=== PATIENT | male | born 2000 | race Caucasian/White ===

== ENCOUNTER 2020-03-06 18:37 | Emergency (ER) | payer OTHER, SELFPAY ==
[2020-03-06 18:45] VITALS: BP 133/74; PULSE 82; RESP 15; TEMP 36.3; O2SAT 98; BMI 21.3
[2020-03-06 20:57] LABS: Urine N gonorrhoeae NOT DETECTED
[2020-03-06 20:58] LABS: Urine Chlamydia NOT DETECTED
[2020-03-06 21:01] VITALS: BP 146/74; PULSE 78; RESP 16; O2SAT 98
--- NOTE | 2020-03-06 22:48 | ED_ITS ---
HPI - Male Genitourinary General Chief complaint: Urogenital-Male Stated complaint: Possible UTI Time Seen by Provider: 03/06/20 22:36 Source: patient Mode of arrival: Ambulatory Limitations: no limitations History of Present Illness HPI Narrative: Patient here for complaints 1 week of dysuria with a white discharge. Treated January by the [employer] [employer] doctor for chlamydia. Given Rocephin and Levaquin. Not Zithromax or doxycycline. Symptoms have returned. Has not been sexually active since last January. Reviewed with patient and agrees with retreatment Rocephin and doxycycline this time, as well as treatment for possible Trichomonas. Will give Ramirez OLEARY Complaint: penile discharge and dysuria Related Data Previous Rx's Medication Instructions Recorded doxycycline monohydrate 100 mg PO BID #14 cap 03/06/20 metronidazole 500 mg PO BID #14 tab 03/06/20 Allergies Allergy/AdvReac Type Severity Reaction Status Date / Time No Known Drug Allergies Allergy Verified 03/06/20 18:48 Review of Systems Review of Systems Narrative: GENERAL: Denies chills, fatigue, malaise, fever, sweats. HEENT: Denies sinus pain, ear pain, sore throat, difficulty swallowing RESPIRATORY: Denies dyspnea, cough CARDIOVASCULAR: Denies chest pain, palpitations, edema, GASTROINTESTINAL: Denies nausea, vomiting, abdominal pain, diarrhea, constipation, melena. : Complains dysuria, denies frequency, hematuria, complaints of urethral discharge MUSCULOSKELETAL: denies muscle or bony pain SKIN: Denies rash, skin lesions NEUROLOGIC: Denies weakness, headache, numbness, change in speech, confusion PSYCHIATRIC: No SI or HI or hallucinations ROS Unobtainable: All systems reviewed & are unremarkable except as noted in HPI and below Patient History Social History Smoking Status: Current every day smoker Smoking Status: Current every day smoker tobacco type: vaping alcohol intake frequency: holidays/special occasions only Substance Use Type: does not use Exam Narrative Exam Narrative: GENERAL: patient appears stated age. Well-nourished, well- developed patient, in no distress, not toxic not dyspneic HEAD: Normocephalic. GASTROINTESTINAL: Abdomen soft, non-tender, nondistended. External genital exam normal. No urethral discharge. No lesions. No testicular tenderness. No scrotal erythema or tenderness or induration. EXTREMITIES: No gross deformities. BACK: Nontender without deformity or crepitance. No flank tenderness. NEURO: AOx4. SKIN: Warm and dry PSYCH: Not anxious, is cooperative Initial Vital Signs Initial Vital Signs: Vital Signs Temperature 97.4 F L 03/06/20 18:45 Pulse Rate 82 03/06/20 18:45 Respiratory Rate 15 03/06/20 18:45 Blood Pressure 133/74 03/06/20 18:45 Pulse Oximetry 98 03/06/20 18:45 Course Course Course Narrative: No new issues during course of stay Orders Ordered: Discontinued Medications Ceftriaxone Sodium (Ceftriaxone 1,000 Mg Vial) 500 mg IM NOW ONE Stop: 03/06/20 22:44 Last Admin: 03/06/20 23:04 Dose: 500 mg Documented by: VOLODYMYR Doxycycline Hyclate (Doxycycline Hyclate 100 Mg Tablet) 100 mg PO NOW ONE Stop: 03/06/20 22:44 Last Admin: 03/06/20 23:04 Dose: 100 mg Documented by: VOLODYMYR Lidocaine HCl (Lidocaine 1% 20 Ml) 2.1 ml INJ NOW ONE Stop: 03/06/20 22:44 Last Admin: 03/06/20 23:05 Dose: Not Given Documented by: VOLODYMYR Reevaluation(s) Reevaluation #1: Reviewed with patient results. Agrees with empiric treatment for symptoms. May be false negative. Time: 23:00 Vital Signs Vital signs: Vital Signs - 8 hr 03/06/20 21:01 03/06/20 23:01 Pulse Rate 78 68 Respiratory Rate 16 16 Blood Pressure 146/74 H 136/90 Pulse Oximetry 98 98 MDM - Male Genitourinary Differential Diagnosis Differential diagnosis: Likely urinary tract infection and urethritis Lab Data Attestation: I reviewed the patient's lab results. Labs: Lab Results 03/06/20 Range/Units 18:50 Ur Chlamydia DNA (PCR) Not detected N gonorrhoeae DNA (PCR) Not detected Urine Dip Bedside Urine Glucose Negative Bedside Urine Bilirubin - Negative Bedside Urine Ketone - Negative Urine Specific [place] 1.015 Bedside Urine Occult Blood - Negative Bedside Urine pH 7.5 Bedside Urine Protein - Negative Bedside Urine Urobilinogen - Negative Bedside Urine Nitrite - Negative Bedside Urine Leukocytes - Negative Esterase MDM Narrative Medical decision making narrative: Patient agrees with treatment for possible Trichomonas infection. Symptoms never fully rib resolved after treatment in January. This time will try doxycycline instead of Levaquin, these are new CDC guidelines Discharge Plan Departure Patient Disposition: Home Clinical Impression: Urethritis Instructions: DI for Urethritis Activity Restrictions/Additional Instructions: See family doctor or clinic [facility]. No sexual activity until seen by your provider. Do not drink alcohol while on these medications. Return if worse or if any questions or concerns Prescriptions: New doxycycline monohydrate 100 mg capsule 100 mg PO BID Qty: 14 RF: 0 metronidazole 500 mg tablet 500 mg PO BID Qty: 14 RF: 0
[2020-03-06 23:01] VITALS: BP 136/90; PULSE 68; RESP 16; O2SAT 98
[2020-03-06] MEDS: cefTRIAXone 1,000 MG VIAL 500 MG IM (23:04)
[2020-03-06] MEDS: DOXYCYCLINE HYCLATE 100 MG TABLET PO (23:04)
[2020-03-06] MEDS: LIDOCAINE 1% (PF) 2 ML (23:05)
--- NOTE | 2020-03-06 23:08 | PC.NURSE ---
recently treated in last month for STI, ongoing burning with urination and small amount of drainage yesterday.
== END 2020-03-06 23:24 | disposition home or self-care (01) ==
PROVIDERS: Emergency Provider Emergency Medicine
DX: N34.2 Other urethritis (principal); Z11.3 Encounter for screening for infections with a predominantly sexual mode of transmission
CPT/HCPCS: 81003; 87491; 87591; 96372; 99282; 99283; J0696

== ENCOUNTER 2022-05-10 21:05 | Emergency (ER) | payer OTHER, SELFPAY ==
[2022-05-10 21:19] VITALS: BP 134/74; PULSE 75; RESP 18; TEMP 37.1; O2SAT 98; BMI 21.3
--- NOTE | 2022-05-10 21:20 | DI.US.S_ITS ---
PROCEDURE: US SCROTUM INDICATIONS: RIGHT TESTICULAR PAIN TECHNIQUE: Real-time scanning was performed of the scrotum and testicles, with image documentation. Color and pulse Doppler interrogation was performed of both testicles. COMPARISON: None. FINDINGS: Right: Testicle measures 4.5 x 3.2 x 2.1 cm and appears homogenous in echotexture. Epididymis is normal in overall size and morphology. There are a few small epididymal head cysts or spermatoceles, with the largest measuring up to 0.3 cm. No hydrocele or varicoceles. Overlying scrotal skin is normal in thickness. Left: Testicle measures 4.8 x 2.8 x 2.0 cm and appears homogeneous in echotexture. Epididymis is normal in overall size and morphology. There are small clustered cysts within the epididymal head measuring up to 0.4 cm in aggregate dimension. No hydrocele or varicoceles. Overlying scrotal skin is normal in thickness. Doppler: Color and pulse Doppler demonstrate normal and symmetric arterial flow in both testicles. There is patent venous flow also demonstrated bilaterally. IMPRESSION: 1. No evidence of testicular torsion. 2. Small bilateral epididymal head cysts or spermatoceles. Dictated by: Dakota Bansal M.D. on 05/10/2022 at 22:19 Approved by: Dakota Bansal M.D. on 05/10/2022 at 22:21
--- NOTE | 2022-05-10 23:08 | DI.CT.S_ITS ---
PROCEDURE: CT KIDNEY URETER BLADDER (KUB) INDICATIONS: R side flank pain eval for stone TECHNIQUE: Axial sections were acquired from the lung bases to the pubic symphysis. Coronal and sagittal reformats were performed. For radiation dose reduction, the following was used: automated exposure control, adjustment of mA and/or kV according to patient size. COMPARISON: [facility], , US SCROTUM, 05/10/2022, 21:38. FINDINGS: Image quality: Excellent. Lung bases: There is minimal atelectasis. Heart: Heart is normal in size. URINARY: Right Kidney and Ureter: No stones or hydronephrosis. No hydroureter. Left Kidney and Ureter: No stones or hydronephrosis. No hydroureter. Bladder: Normal wall thickness. No stones. ABDOMEN: Liver: Noncontrast evaluation of the liver demonstrates no discrete mass. Gallbladder: Within normal limits without calcified gallstones. Biliary ducts: No biliary ductal dilatation. Pancreas: Unremarkable. Spleen: Normal in size. Adrenal Glands: No adrenal nodules. Stomach and Bowel: Stomach, small bowel loops, and colon are normal in caliber and wall thickness. No pericecal inflammatory changes to suggest appendicitis. There is colonic diverticulosis without acute diverticulitis. Peritoneum: No abnormal intraperitoneal fluid. No free air. Ventral Wall: No hernia. Abdominal Nodes: No retroperitoneal or mesenteric adenopathy by size criteria. Vessels: Aorta and inferior vena cava are normal in size. PELVIS: Pelvic Organs: Unremarkable. Pelvic Nodes: No enlarged lymph nodes. Miscellaneous: No inguinal hernias identified. Bones: There is mild retrolisthesis at L4-5 and L5-S1 with mild degenerative disc disease. Visualized osseous structures demonstrate no suspicious focal lesions. IMPRESSION: 1. No evidence of nephrolithiasis or obstructive uropathy. 2. No pericecal inflammatory changes to suggest appendicitis. 3. Colonic diverticulosis without acute diverticulitis. Dictated by: Dakota Bansal M.D. on 05/11/2022 at 0:23 Approved by: Dakota Bansal M.D. on 05/11/2022 at 0:27
--- NOTE | 2022-05-10 23:08 | ED.GENADULT ---
HPI - General Adult General Chief complaint: Urogenital-Male Stated complaint: rt. side back pain/testicular pain Time Seen by Provider: 05/10/22 21:20 Source: patient Mode of arrival: Ambulatory History of Present Illness HPI narrative: This is a 21-year-old male who here for evaluation of right-sided flank pain radiating around to the right side of his abdomen and down into his right testicle. He also states he is having ?sediment ?in his urine. He has had symptoms like this in the past. He stated that he was evaluated by his medical department. He stated that they tested him for STDs and urinary tract infection. Was told that he had nongonococcal urethritis. Was placed on doxycycline which he took and then his symptoms resolved. He states that his current symptoms started within the past several days. He is not having any problems urinating but does state that it is somewhat tender right at the end of urination. He did have some sediment in his urine that has now resolved. No skin rashes over the area. He states the pain does radiate to his right testicle. No prior abdominal surgeries. He is . No concerns for STDs. Has never had a kidney stone in the past. Related Data Previous Rx's Medication Instructions Recorded doxycycline monohydrate 100 mg 100 mg PO BID #14 caps 03/06/20 capsule metronidazole 500 mg tablet 500 mg PO BID #14 tabs 03/06/20 Allergies Allergy/AdvReac Type Severity Reaction Status Date / Time No Known Drug Allergies Allergy Verified 03/06/20 18:48 Review of Systems Constitutional Constitutional: Reports system reviewed and no additional complaints, except as documented Gastrointestinal Gastrointestinal: Reports system reviewed and no additional complaints, except as documented Genitourinary Genitourinary: Reports system reviewed and no additional complaints, except as documented Integumentary/Breasts Skin/Breast: Reports system reviewed and no additional complaints, except as documented Patient History Social History Smoking Status: Current every day smoker Smoking Status: Current every day smoker tobacco type: vaping alcohol intake frequency: holidays/special occasions only Substance Use Type: does not use Exam Initial Vital Signs Initial Vital Signs: Vital Signs Temperature 98.8 F 05/10/22 21:19 Pulse Rate 75 05/10/22 21:19 Respiratory Rate 18 05/10/22 21:19 Blood Pressure 134/74 05/10/22 21:19 Pulse Oximetry 98 05/10/22 21:19 Oxygen Delivery Method Room Air 05/10/22 21:19 GI Inspection: normal to inspection and non-distended Palpation: soft, No rigid and tender (Right-sided abdomen without rebound or guarding) External: normal external exam and circumcised Penis: normal penis Meatus: meatus normal Testes: normal, testicular lie normal, epididymides normal and no testicular mass Back/Spine/Pelvis Back: CVA tenderness right Skin General: no rashes or lesions noted Course Orders Ordered: ED Orders 05/10/22 21:20 US scrotum Stat 05/10/22 21:25 Chlamydia Gonorrhea PCR -URINE Stat 05/10/22 23:08 CT kidney ureter bladder (KUB) Stat 05/11/22 00:46 Urine Culture Stat Vital Signs Vital signs: Vital Signs - 8 hr 05/10/22 21:19 05/11/22 01:05 Temperature 98.8 F 97.8 F Pulse Rate 75 78 Respiratory Rate 18 16 Blood Pressure 134/74 132/74 Pulse Oximetry 98 100 Oxygen Delivery Method Room Air Room Air Medical Decision Making Lab Data Lab results reviewed: Yes I reviewed the patient's lab results. Labs: Lab Results 05/10/22 Range/Units 21:25 Ur Chlamydia DNA (PCR) Not detected N gonorrhoeae DNA (PCR) Not detected Urine Dip Bedside Urine Glucose Negative Bedside Urine Bilirubin - Negative Bedside Urine Ketone - Negative Urine Specific [place] 1.015 Bedside Urine Occult Blood - Negative Bedside Urine pH 6.5 Bedside Urine Protein - Negative Bedside Urine Urobilinogen - Negative Bedside Urine Nitrite - Negative Bedside Urine Leukocytes - Negative Esterase Point of care testing: Urine Dip Bedside Urine Glucose Negative Bedside Urine Bilirubin - Negative Bedside Urine Ketone - Negative Urine Specific [place] 1.015 Bedside Urine Occult Blood - Negative Bedside Urine pH 6.5 Bedside Urine Protein - Negative Bedside Urine Urobilinogen - Negative Bedside Urine Nitrite - Negative Bedside Urine Leukocytes - Negative Esterase Imaging Data scrotal US: Radiologist's Impression: PROCEDURE:? US SCROTUM ? INDICATIONS:? RIGHT TESTICULAR PAIN ? TECHNIQUE:? Real-time scanning was performed of the scrotum and testicles, with image documentation.? Color and pulse Doppler interrogation was performed of both testicles.? ? COMPARISON:? None. ? FINDINGS:? ? Right:? Testicle measures 4.5 x 3.2 x 2.1 cm and appears homogenous in echotexture.? Epididymis is normal in overall size and morphology.? There are a few small epididymal head cysts or spermatoceles, with the largest measuring up to 0.3 cm. No hydrocele or varicoceles.? Overlying scrotal skin is normal in thickness.? ? Left:? Testicle measures 4.8 x 2.8 x 2.0 cm and appears homogeneous in echotexture.? Epididymis is normal in overall size and morphology.? There are small clustered cysts within the epididymal head measuring up to 0.4 cm in aggregate dimension.? No hydrocele or varicoceles.? Overlying scrotal skin is normal in thickness.? ? Doppler:? Color and pulse Doppler demonstrate normal and symmetric arterial flow in both testicles.? There is patent venous flow also demonstrated bilaterally.? ? IMPRESSION:? ? 1. No evidence of testicular torsion. ? 2. Small bilateral epididymal head cysts or spermatoceles. CT KUB: Radiologist's Impression: PROCEDURE:? CT KIDNEY URETER BLADDER (KUB) ? INDICATIONS:? R side flank pain eval for stone ? TECHNIQUE:? Axial sections were acquired from the lung bases to the pubic symphysis.? Coronal and sagittal reformats were performed.? For radiation dose reduction, the following was used: ?automated exposure control, adjustment of mA and/or kV according to patient size.? ? COMPARISON:? [facility], , SCROTUM, 05/10/2022, 21:38. ? FINDINGS:? Image quality:? Excellent.? ? Lung bases:? There is minimal atelectasis.? ? Heart:? Heart is normal in size. ? URINARY: Right Kidney and Ureter: ? No stones or hydronephrosis.? No hydroureter.? ? Left Kidney and Ureter: ? No stones or hydronephrosis.? No hydroureter. ? Bladder:? Normal wall thickness. No stones. ? ? ? ABDOMEN: Liver:? Noncontrast evaluation of the liver demonstrates no discrete? mass. Gallbladder:? Within normal limits without calcified gallstones.? ? Biliary ducts:? No biliary ductal dilatation.? ? Pancreas:? Unremarkable.? ? Spleen:? Normal in size.? ? Adrenal Glands:? No adrenal nodules.? ? ? Stomach and Bowel:? Stomach, small bowel loops, and colon are normal in caliber and wall thickness.? No pericecal inflammatory changes to suggest appendicitis.? There is colonic diverticulosis without acute diverticulitis.? Peritoneum:? No abnormal intraperitoneal fluid.? No free air.? ? Ventral Wall: ? No hernia.? Abdominal Nodes:? No retroperitoneal or mesenteric adenopathy by size criteria.? Vessels:? Aorta and inferior vena cava are normal in size.? ? PELVIS: Pelvic Organs:? Unremarkable.? ? Pelvic Nodes: No enlarged lymph nodes.? Miscellaneous: No inguinal hernias identified. ? ? ? Bones:? There is mild retrolisthesis at L4-5 and L5-S1 with mild degenerative disc disease.? Visualized osseous structures demonstrate no suspicious focal lesions. IMPRESSION:? ? 1. No evidence of nephrolithiasis or obstructive uropathy. ? 2. No pericecal inflammatory changes to suggest appendicitis. ? 3. Colonic diverticulosis without acute diverticulitis.? MDM Narrative Medical decision making narrative: Workup here is reassuring. His urine GC and chlamydia is negative. Urinalysis does not show any signs of an infection. I have low suspicion for pyelonephritis. No skin changes over the area concerning for zoster. His testicular exam is unremarkable. His ultrasounds negative for torsion. Exam is not consistent with torsion. He does not have an an inguinal hernia. The CT scan does not show any signs of kidney stone/ureteral stone/bladder stones. He is no skin changes around his genitals. No indication for antibiotics. No indication for surgical consultation. I did discuss all this with him. I did advise that he talk with his medical department as the symptoms seem to be happening more frequently over the past couple months and that he will probably benefit from a referral to see Urology. He expressed understanding agreement with plan. Discharge Plan Departure Patient Disposition: Home Clinical Impression: Flank pain Instructions: DI for Flank Pain Activity Restrictions/Additional Instructions: I do recommend that you talk with your medical department about a referral to see Urology. Your workup here in the emergency department today is very reassuring. There is a urine culture pending that we will contact you if we need to start any antibiotics based on this. Return to the emergency department for new symptoms. Prescriptions: No Action doxycycline monohydrate 100 mg capsule 100 mg PO BID Qty: 14 0RF metronidazole 500 mg tablet 500 mg PO BID Qty: 14 0RF Referrals: Sidney Ashraf MD [Physician] - Stand Alone Forms: Patient Portal/API
[2022-05-10 23:12] LABS: Urine N gonorrhoeae NOT DETECTED
[2022-05-10 23:14] LABS: Urine Chlamydia NOT DETECTED
[2022-05-11 01:05] VITALS: BP 132/74; PULSE 78; RESP 16; TEMP 36.6; O2SAT 100
== END 2022-05-11 01:22 | disposition home or self-care (01) ==
PROVIDERS: Emergency Provider Emergency Medicine
DX: R10.9 Unspecified abdominal pain (principal); N50.811 Right testicular pain
CPT/HCPCS: 74176; 76870; 81003; 87086; 87491; 87591; 99282; 99284